=== PATIENT | female | born 1965 | race Caucasian/White ===

== ENCOUNTER 2017-12-09 10:09 | Emergency (ER) | payer MEDICAID ==
[~2017-12-09] VITALS: Ht 172.7 cm; Wt 55.8 kg
[2017-12-09] MEDS ORDERED: LIDOCAINE HCL/PF 1% 30 ML SDV ONE (10:59)
[2017-12-09] MEDS ORDERED: TDAP [DIPH/PERTUSSIS/TET] 0.5 ML VIAL IM ONE ×2 (11:28→11:30)
[2017-12-09 11:57] VITALS: BP 110/83
== END 2017-12-09 11:57 | disposition home or self-care (01) ==
LOC: ER 10:12
DX: S01.81XA Laceration without foreign body of other part of head, initial encounter (principal); G40.909 Epilepsy, unspecified, not intractable, without status epilepticus; Z88.2 Allergy status to sulfonamides; Z85.3 Personal history of malignant neoplasm of breast; X58.XXXA Exposure to other specified factors, initial encounter; Y93.89 Activity, other specified; Y92.89 Other specified places as the place of occurrence of the external cause; Y99.8 Other external cause status
CPT/HCPCS: 90715; A4606; A6402; A6403; J3490; Z7610

== ENCOUNTER 2019-02-16 19:10 | Emergency (ER) | payer MEDICAID ==
--- NOTE | 2019-02-16 20:39 | NUR ---
CALLED IN [facility], NO ANSWER.
--- NOTE | 2019-02-16 21:09 | NUR ---
PATIENT LEFT, NOT IN THE [facility].
== END 2019-02-16 21:09 | disposition left against medical advice (07) ==
LOC: ER 19:12
DX: Z53.21 Procedure and treatment not carried out due to patient leaving prior to being seen by health care provider (principal)

== ENCOUNTER 2025-01-19 10:25 | Emergency (ER) | payer MEDICAID ==
[~2025-01-19] VITALS: Ht 172.7 cm; Wt 56.7 kg
[2025-01-19 10:42] VITALS: BP 126/82; TEMP 98.6; O2SAT 96
== END 2025-01-19 11:48 | disposition home or self-care (01) ==
LOC: ER 10:33
DX: S60.512A Abrasion of left hand, initial encounter (principal); S60.511A Abrasion of right hand, initial encounter; G40.909 Epilepsy, unspecified, not intractable, without status epilepticus; Z85.3 Personal history of malignant neoplasm of breast; Z88.2 Allergy status to sulfonamides; Z60.2 Problems related to living alone; X58.XXXA Exposure to other specified factors, initial encounter; Y93.89 Activity, other specified; Y92.89 Other specified places as the place of occurrence of the external cause; Y99.8 Other external cause status
CPT/HCPCS: 73130-TC